=== PATIENT | male | born 1985 | race African-American/Black ===

== ENCOUNTER 2017-03-25 21:32 | Emergency (ER) | payer BC ==
[~2017-03-25] VITALS: Ht 175.3 cm; Wt 88.9 kg
[2017-03-25 21:35] VITALS: TEMP 36.8; Ht 175.3 cm; Wt 88.9 kg
--- NOTE | 2017-03-25 21:51 | EMERGENCY ROOM VISIT NOTE ---
History Report prepared by Carlosibbridget: Tomy Judge Under the Supervision of: Dr. Jony Eduardo M.D. First contact with patient: 21:48 Chief Complaint: TESTICULAR PAIN Stated Complaint: SWOLLEN TESTICLE OR LUMP Nursing Triage Summary: c/o right testicular pain since wed with swelling.denies injury or any falls. History of Present Illness The patient is a 31 year old male who presents to the Emergency Room with complaints of a swollen right testicle starting 4 days ago. The patient admits to pain initially, then noticed swelling later in the day his symptoms started. He complains of mild abdominal pain that started yesterday. The patient denies any urinary symptoms, penile discharge, diarrhea, nausea, vomiting, fever, or any history of hernias. He took Ibuprofen for his discomfort, which provided some relief. He reports he also took Benadryl for allergies and states he experienced no testicular pain afterwards. Source of History: patient Onset: 4 days [employer] Position: other (right testicle) Timing: constant Modifying Factors (Relieving): ibuprofen, other (Benadryl) Associated Symptoms: + abdominal pain, No diarrhea, No fevers, No nausea, No urinary symptoms, No vomiting Note: He denies any discharge. Review of Systems See HPI for pertinent positives & negatives. A total of 6 systems reviewed and were otherwise negative. Past Medical & Surgical Medical Problems: (1) Asthma (2) Broken bones (3) Bronchitis (4) Flat feet (5) Food allergy (6) Seasonal allergies Family History FHx: diabetes mellitus FHx: heart disease FHx: hypertension Social History Smoking Status: Never Smoker Alcohol Use: occasionally Drug Use: none Marital Status: single Housing Status: lives alone Occupation Status: employed Current/Historical Medications Scheduled Doxycycline Hyclate (Vibramycin), 100 MG PO BID Allergies Coded Allergies: No Known Allergies (Unverified , 03/25/17) Physical Exam Vital Signs Date Time Temp Pulse Resp B/P Pulse Ox O2 Delivery O2 Flow Rate FiO2 03/25/17 23:47 76 18 125/78 98 Room Air 03/25/17 21:35 36.8 98 18 143/94 99 Room Air Physical Exam GENERAL: Patient is well appearing and in no acute distress. HEENT: No acute trauma, normocephalic atraumatic, mucous membranes moist, no nasal congestion, no scleral icterus. NECK: No stridor, no adenopathy, no meningismus, trachea is midline. LUNGS: No dyspnea. Clear to auscultation and equal bilaterally. No wheeze, no rhonchi. HEART: Regular rate and rhythm. No murmurs, rubs, gallops appreciated. ABDOMEN: Soft, nontender, bowel sounds positive, no masses appreciated, no peritonitis. GENITOURINARY: Enlarged, tender right epididymis without overlying cellulitis or erythema. BACK: No midline tenderness, no CVA tenderness EXTREMITIES: Normal motion all extremities, no cyanosis, no edema. NEUROLOGIC: Alert and oriented, no acute motor or sensory deficits, no focal weakness, cranial nerves grossly intact. SKIN: No rash, no jaundice, no diaphoresis. Medical Decision & Procedures ER Provider Diagnostic Interpretation: This Ultrasound was reviewed by myself and reviewed and interpreted by the radiologist. TESTICULAR ULTRASOUND IMPRESSION: 1. Enlarged and hypervascular body and tail of the right epididymis consistent with an epididymitis. 2. Trace right hydrocele. 3. Normal bilateral testes. Electronically signed by: Shaun Booker M.D. 03/25/2017 10:42 PM Laboratory Results Test 03/25/17 21:40 Urine Color YELLOW Urine Appearance CLEAR (CLEAR) Urine pH 8.0 (4.5-7.5) Urine Specific [place] 1.009 (1.000-1.030) Urine Protein NEG (NEG) Urine Glucose (UA) NEG (NEG) Urine Ketones NEG (NEG) Urine Occult Blood NEG (NEG) Urine Nitrite NEG (NEG) Urine Bilirubin NEG (NEG) Urine Urobilinogen NEG (NEG) Urine Leukocyte Esterase TRACE (NEG) Urine WBC (Auto) 1-5 /hpf (0-5) Urine RBC (Auto) 0-4 /hpf (0-4) Urine Hyaline Casts (Auto) 0 /lpf (0-5) Urine Epithelial Cells (Auto) 0-5 /lpf (0-5) Urine Bacteria (Auto) NEG (NEG) Laboratory results as reviewed by me. Medications Administered Medications (Trade) Dose Ordered Sig/Sarai Route Start Time Stop Time Status Last Admin Dose Admin Ceftriaxone Sodium (Rocephin Im) 250 mg NOW STAT IM 03/25/17 23:27 03/25/17 23:28 DC 03/25/17 23:37 250 MG Doxycycline Hyclate (Vibramycin Cap) 100 mg NOW STAT PO 03/25/17 23:27 03/25/17 23:28 DC 03/25/17 23:37 100 MG ED Course 2149: The patient was evaluated in room C11. A complete history and physical exam was performed. 2328: Vibramycin Cap 100 mg PO, Rocephin Im 250 mg IM. 2330: I reevaluated the patient. He is comfortable with being sent home with antibiotics. I discussed his results and discharge instructions and he verbalized complete understanding and agreement. Medical Decision 31 yr old male arrives with swollen mildly painful right testicle. Exam consistent with epididymitis which US confirms. No evidence of abscess, torsion , nor mass. Patient stable and notes that NSAIDs working for pain at home. Denies anal intercourse. Will treat with Rocephin/Doxy per guidelines. No known allergies. Stable and comfortable with discharge. Impression Primary Impression: Acute epididymitis Scribe Attestation The scribe's documentation has been prepared under my direction and personally reviewed by me in its entirety. I confirm that the note above accurately reflects all work, treatment, procedures, and medical decision making performed by me. Departure Information Dispostion Home / Self-Care (ERASED) Prescriptions Doxycycline Hyclate (VIBRAMYCIN) 100 Mg Cap 100 MG PO BID for 10 Days, #20 CAP Prov: Jony Eduardo M.D. 03/25/17 Referrals No Doctor, Assigned (PCP) Patient Instructions ED Epididymitis, My [facility]
[2017-03-25 22:17] LABS: URINE APPEARANCE CLEAR (CLEAR); URINE BILIRUBIN NEG (NEG); URINE COLOR YELLOW; URINE EPITHELIAL CELL AUTO 0-5 /lpf (0-5); URINE NITRITE NEG (NEG); URINE SPECIFIC GRAVITY 1.009 (1.000-1.030); UROBILINOGEN NEG (NEG); ZZUR CULT IF INDIC CLEAN CATCH NO
[2017-03-25 22:25] LABS: MANUAL MICROSCOPIC REQUIRED? NO; REVIEW REQ? NO
--- NOTE | 2017-03-25 22:44 | DIAGNOSTIC IMAGING REPORT ---
TESTICULAR ULTRASOUND HISTORY: right testicular swelling COMPARISON: None. FINDINGS: Right testis: 3.5 x 2.8 x 2.4 cm. There are no intratesticular masses. Normal color flow. There is an appendix testis. The body and tail of the epididymis is enlarged and hypervascular. Trace right hydrocele. Left testis: 4.1 x 1.9 x 2.5 cm. There are no intratesticular masses. Normal color flow. No hydrocele. The epididymis is unremarkable. IMPRESSION: 1. Enlarged and hypervascular body and tail of the right epididymis consistent with an epididymitis. 2. Trace right hydrocele. 3. Normal bilateral testes. Electronically signed by: Shaun Booker M.D. 03/25/2017 10:42 PM Dictated Date/Time: 03/25/2017 10:40 PM
[2017-03-25] MEDS ORDERED: DOXY100C PO (23:26)
[2017-03-25] MEDS ORDERED: CEFTRIAXONE SOD 350MG/ML 1 GM VIAL IM STA (23:27)
[2017-03-25] MEDS ORDERED: DOXYCYCLINE HYCLATE 100 MG CAP PO STA (23:27)
[2017-03-25 23:47] VITALS: BP 125/78; PULSE 76; O2SAT 98
== END 2017-03-26 00:01 | disposition home or self-care (01) ==
LOC: C.EDB 21:35 → C.EDC 03-26 00:01
DX: N45.1 Epididymitis (principal); J45.909 Unspecified asthma, uncomplicated; Z83.3 Family history of diabetes mellitus; Z82.49 Family history of ischemic heart disease and other diseases of the circulatory system